=== PATIENT | male | born 2000 | race Caucasian/White ===

== ENCOUNTER 2021-07-18 01:08 | Emergency (ER) | payer OTHER, SELFPAY ==
[2021-07-18 01:27] VITALS: BP 150/91; PULSE 117; RESP 16; TEMP 37.3; O2SAT 100
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
== END 2021-07-18 01:55 | disposition home or self-care (01) ==
PROVIDERS: Emergency Provider Emergency Medicine; PCP Pediatrics Adolescent Medicine
DX: H93.19 Tinnitus, unspecified ear (principal); S40.812A Abrasion of left upper arm, initial encounter; V89.0XXA Person injured in unspecified motor-vehicle accident, nontraffic, initial encounter
CPT/HCPCS: 99283